=== PATIENT | male | born 1960 | race Caucasian/White ===

== ENCOUNTER 2017-06-01 07:48 | Emergency (ER) | payer MEDICAID ==
[2017-06-01] MEDS: ASPIRIN 325 MG TAB PO (08:20)
[2017-06-01 08:56] LABS: ADD MAN DIFF? NO
[2017-06-01 09:00] LABS: WHITE BLOOD COUNT 4.6 10^3/ul (4.8-10.8)
[2017-06-01 09:00] LABS: BASOPHILS % 0.7 % (0.0-2.0); EOSINOPHILS # 0.1 10^3/ul (0.0-0.5); EOSINOPHILS % 2.2 % (0.0-7.0); LYMPHOCYTES # 1.6 10^3/ul (0.8-2.9); LYMPHOCYTES % 35.4 % (15.0-51.0); MEAN CORPUSCULAR HEMOGLOBIN 30.3 pg (29.0-33.0); MEAN CORPUSCULAR VOLUME 86.6 fl (82.0-101.0); MEAN PLATELET VOLUME 8.8 fl (7.4-10.4); MONOCYTE # 0.2 10^3/ul (0.3-0.9); MONOCYTES % 5.2 % (0.0-11.0); NEUTROPHIL # 2.6 10^3/ul (1.6-7.5); NEUTROPHILS % 56.3 % (39.0-77.0); PLATELET COUNT 323 10^3/UL (140-415); RED BLOOD COUNT 4.62 10^6/ul (4.70-6.10); RED CELL DISTRIBUTION WIDTH 13.6 % (11.5-14.5)
[2017-06-01 09:18] LABS: AMYLASE 55 U/L (11-123)
[2017-06-01 09:18] LABS: ALANINE AMINOTRANSFERASE 14 IU/L (13-69); ALBUMIN 4.4 g/dl (3.3-4.9); ALBUMIN/GLOBULIN RATIO 1.33; ALKALINE PHOSPHATASE 57 IU/L (42-121); ANION GAP 17 (8-16); ASPARTATE AMINO TRANSFERASE 15 IU/L (15-46); BILIRUBIN,INDIRECT 0.4 mg/dl (0-1.1); BILIRUBIN,TOTAL 0.4 mg/dl (0.2-1.3); BLOOD UREA NITROGEN 17 mg/dl (7-20); CALCIUM 9.2 mg/dl (8.4-10.2); CARBON DIOXIDE 27 mmol/L (21-31); CHLORIDE 105 mmol/L (97-110); CREATININE 0.66 mg/dl (0.61-1.24); GLUCOSE 156 mg/dl (70-220); INR 0.87; LIPASE 71 U/L (23-300); PARTIAL THROMBOPLASTIN TIME 29.3 Sec (25.0-35.0); POTASSIUM 4.1 mmol/L (3.5-5.1); PROTIME 11.9 Sec (11.9-14.9); PT RATIO 0.9; SODIUM 145 mmol/L (135-144); TOTAL PROTEIN 7.7 g/dl (6.1-8.1)
[2017-06-01 09:31] LABS: TROPONIN-I < 0.012 ng/ml (0.00-0.12)
== END 2017-06-01 10:12 | disposition home or self-care (01) ==
LOC: FTE 07:48
DX: M54.6 Pain in thoracic spine (principal); R07.89 Other chest pain; E11.9 Type 2 diabetes mellitus without complications; Z79.84 Long term (current) use of oral hypoglycemic drugs
CPT/HCPCS: 71046; 80053; 82150; 83690; 84484; 85025; 85610; 85730; 93005; 99285-25

== ENCOUNTER 2018-08-12 15:24 | Emergency (ER) | payer MEDICAID ==
[2018-08-12] MEDS: ONDANSETRON (ODT) 4 MG TAB ODT (17:03)
[2018-08-12] MEDS: HYDROCODONE/APAP (5/325) TAB PO (18:39)
== END 2018-08-12 18:56 | disposition home or self-care (01) ==
LOC: FTE 15:24
DX: S16.1XXA Strain of muscle, fascia and tendon at neck level, initial encounter (principal); E11.9 Type 2 diabetes mellitus without complications; R51 Headache; W01.198A Fall on same level from slipping, tripping and stumbling with subsequent striking against other object, initial encounter; Y92.9 Unspecified place or not applicable; Z79.84 Long term (current) use of oral hypoglycemic drugs
CPT/HCPCS: 70450; 70486; 71045; 72125; 99284-25

== ENCOUNTER 2018-08-15 09:06 | Emergency (ER) | payer MEDICAID | END 2018-08-15 10:14 | disposition home or self-care (01) | LOC: FTE 10:14 | DX: R42 Dizziness and giddiness (principal); F07.81 Postconcussional syndrome; E11.9 Type 2 diabetes mellitus without complications | CPT/HCPCS: 82962; 99282 ==